=== PATIENT | female | born 1990 | race Caucasian/White ===

== ENCOUNTER 2019-07-02 18:32 | Emergency (ER) | payer MEDICAID ==
[~2019-07-02] VITALS: Ht 177.8 cm; Wt 156.0 kg
[~2019-07-02 18:32] MED LIST: NORG1TAB PO
[2019-07-02] MEDS ORDERED: ibuprofen tablet 400 MG TABLET PO STA (19:03)
[2019-07-02] MEDS ORDERED: LISI-600 PO (19:06)
[2019-07-02] MEDS ORDERED: HYDR12.55 PO (19:06)
--- NOTE | 2019-07-02 19:18 | NUR ---
THE PATIENT HAD ONLY TAKEN 500 MG OF TYLENOL EXAM PROCTOR SO I ORDERED AND ADMINSTERED MOTRIN AND DID PATIENT EDUCATION.
[2019-07-02 20:30] VITALS: BP 146/80
[2019-07-02] MEDS ORDERED: oseltamivir phos 75mg capsule PO ONE (20:45)
[2019-07-02] MEDS ORDERED: TAM75C PO (20:48)
--- NOTE | 2019-07-02 21:42 | NUR ---
PT NOTIFIED OF POSITIVE FLU AND TO FILL HER RX FOR TAMIFLU
== END 2019-07-02 21:00 | disposition home or self-care (01) ==
LOC: ER 18:33
DX: J10.1 Influenza due to other identified influenza virus with other respiratory manifestations (principal); Z56.0 Unemployment, unspecified; Z79.899 Other long term (current) drug therapy
CPT/HCPCS: 87502; 87503; 99283

== ENCOUNTER 2019-11-25 11:50 | Emergency (ER) | payer BC, MEDICAID ==
[~2019-11-25] VITALS: Ht 177.8 cm; Wt 166.4 kg
[~2019-11-25 11:50] MED LIST changes: +HYDR12.55 PO; +LISI-600 PO; -NORG1TAB PO
[2019-11-25] MEDS ORDERED: metoprolol tartrate 1mg/ml inj IV ONE (12:25)
[2019-11-25 12:52] LABS: BASOPHILS % (AUTO) 0.5 % (0-1); EOSINOPHILS # (AUTO) 0.1 X10'3 (0-0.9); EOSINOPHILS % (AUTO) 1.1 % (0-6); HEMATOCRIT 36.4 % (35.0-45.0); HEMOGLOBIN 11.7 g/dl (12.0-16.0); LYMPHOCYTES # (AUTO) 2.3 X10'3 (1.1-4.8); LYMPHOCYTES % (AUTO) 28.8 % (21-51); MEAN CORPUSCULAR HEMOGLOBIN 25.1 PG (27.0-31.0); MEAN CORPUSCULAR HGB CONC 32.1 g/dL (33.0-36.5); MEAN CORPUSCULAR VOLUME 78.3 FL (78-98); MEAN PLATELET VOLUME 6.4 FL (7.4-10.4); MONOCYTES # (AUTO) 0.3 X10'3 (0-0.9); MONOCYTES % (AUTO) 4.3 % (2-12); NEUTROPHILS # (AUTO) 5.2 X10'3 (1.8-7.7); NEUTROPHILS % (AUTO) 65.3 % (42-75); PLATELET COUNT 312 X10'3 (140-440); RED BLOOD COUNT 4.65 X10'6 (4.20-5.60); RED CELL DISTRIBUTION WIDTH 15.5 % (11.5-14.5); WHITE BLOOD COUNT 7.9 X10'3 (4.5-11.0)
[2019-11-25 13:11] LABS: ALANINE AMINOTRANSFERASE 36 U/L (12-78); ALBUMIN 3.7 G/DL (3.4-5.0); ALBUMIN/GLOBULIN RATIO 0.8 (1.1-1.5); ALKALINE PHOSPHATASE 124 IU/L (46-116); ANION GAP 6 (8-16); ASPARTATE AMINO TRANSFERASE 18 U/L (10-37); BILIRUBIN,TOTAL 0.6 MG/DL (0.1-1.0); BLOOD UREA NITROGEN 12 MG/DL (7-18); BUN/CREATININE RATIO 16.2 (6.6-38.0); CALCIUM 8.9 MG/DL (8.5-10.1); CHLORIDE 106 MMOL/L (99-107); CREATININE 0.74 MG/DL (0.40-0.90); GLUCOSE 102 MG/DL (70-104); POTASSIUM 3.7 MMOL/L (3.5-5.1); SODIUM 141 MMOL/L (135-145); TOTAL CARBON DIOXIDE 29.5 MMOL/L (24-32); TOTAL PROTEIN 8.3 G/DL (6.4-8.2); eGFR > 90 ML/MIN
[2019-11-25] MEDS ORDERED: cloNIDine 0.1 mg tablet PO ONE (13:55)
[2019-11-25 13:57] VITALS: BP 171/105
[2019-11-25] MEDS ORDERED: HYDR12.55 PO (14:10)
[2019-11-25] MEDS ORDERED: LISI-600 PO (14:10)
== END 2019-11-25 14:27 | disposition home or self-care (01) ==
LOC: ER 11:50
DX: I10 Essential (primary) hypertension (principal); Z56.0 Unemployment, unspecified; Z79.899 Other long term (current) drug therapy
CPT/HCPCS: 36415; 71045; 80053; 83880; 84484; 85025; 93005; 96374; 99285; J3490

== ENCOUNTER 2020-05-18 21:06 | Emergency (ER) | payer MEDICAID ==
[~2020-05-18] VITALS: Ht 175.3 cm; Wt 165.0 kg
[2020-05-18 21:15] VITALS: BP 191/104
[2020-05-18] MEDS ORDERED: ibuprofen tablet 400 MG TABLET PO ONE (21:25)
[2020-05-18] MEDS ORDERED: PRED20TA PO (22:56)
[2020-05-18] MEDS ORDERED: ALBU6.7H9 INH (22:56)
[2020-05-18] MEDS ORDERED: AZIT250T2 PO (22:56)
--- NOTE | 2020-05-18 23:13 | NUR ---
pt left called her phone and left message for her to come and pickling grader her prescriptions
== END 2020-05-18 23:15 | disposition left against medical advice (07) ==
LOC: ER 21:07
DX: J40 Bronchitis, not specified as acute or chronic (principal); R50.9 Fever, unspecified; R07.89 Other chest pain; R06.02 Shortness of breath; R09.89 Other specified symptoms and signs involving the circulatory and respiratory systems; Z20.828 Contact with and (suspected) exposure to other viral communicable diseases; I10 Essential (primary) hypertension; Z56.0 Unemployment, unspecified; Z79.2 Long term (current) use of antibiotics; Z79.899 Other long term (current) drug therapy
CPT/HCPCS: 36415; 71045; 87502; 87503; 93005; 99285

== ENCOUNTER → 2020-06-17 | Emergency (ER) | payer MEDICAID ==
[~2020-06-17] VITALS: Ht 175.3 cm; Wt 163.6 kg
[~2020-06-17] MED LIST changes: +ALBU6.7H9 INH; +HYDROchlorothiazide 25mg tablet PO ONE; +LISI1TAB51 PO; +aspirin 81mg tab.chew PO ONE; +lisinopril 10 MG tablet PO ONE
[2020-06-17 16:02] LABS: BASOPHILS % (AUTO) 0.4 % (0-1); EOSINOPHILS # (AUTO) 0.1 X10'3 (0-0.9); LYMPHOCYTES % (AUTO) 35.2 % (21-51); MEAN PLATELET VOLUME 6.7 FL (7.4-10.4); MONOCYTES # (AUTO) 0.3 X10'3 (0-0.9)
[2020-06-17 16:04] LABS: EOSINOPHILS % (AUTO) 1.5 % (0-6); HEMATOCRIT 35.8 % (35.0-45.0); HEMOGLOBIN 11.5 g/dl (12.0-16.0); LYMPHOCYTES # (AUTO) 2.1 X10'3 (1.1-4.8); MEAN CORPUSCULAR HEMOGLOBIN 25.7 PG (27.0-31.0); MEAN CORPUSCULAR HGB CONC 32.1 g/dL (33.0-36.5); MONOCYTES % (AUTO) 5.5 % (2-12); NEUTROPHILS # (AUTO) 3.4 X10'3 (1.8-7.7); NEUTROPHILS % (AUTO) 57.4 % (42-75); PLATELET COUNT 352 X10'3 (140-440); RED BLOOD COUNT 4.47 X10'6 (4.20-5.60); RED CELL DISTRIBUTION WIDTH 15.8 % (11.5-14.5); WHITE BLOOD COUNT 5.9 X10'3 (4.5-11.0)
[2020-06-17 16:12] LABS: ALANINE AMINOTRANSFERASE 39 U/L (12-78); ALBUMIN 3.7 G/DL (3.4-5.0); ALBUMIN/GLOBULIN RATIO 0.8 (1.1-1.5); ALKALINE PHOSPHATASE 108 IU/L (46-116); ANION GAP 5 (8-16); ASPARTATE AMINO TRANSFERASE 18 U/L (10-37); BILIRUBIN,TOTAL 0.9 MG/DL (0.1-1.0); BLOOD UREA NITROGEN 8 MG/DL (7-18); BUN/CREATININE RATIO 10.4 (6.6-38.0); CALCIUM 8.8 MG/DL (8.5-10.1); CHLORIDE 106 MMOL/L (99-107); CREATININE 0.77 MG/DL (0.40-0.90); GLUCOSE 100 MG/DL (70-104); POTASSIUM 3.5 MMOL/L (3.5-5.1); SODIUM 141 MMOL/L (135-145); TOTAL CARBON DIOXIDE 30.4 MMOL/L (24-32); TOTAL PROTEIN 8.3 G/DL (6.4-8.2); eGFR 89 ML/MIN
[2020-06-17 16:19] LABS: MAGNESIUM 2.2 MG/DL (1.5-2.4)
[2020-06-17 16:33] VITALS: BP_DIAS 122
[2020-06-17 16:40] VITALS: BP_SYST 177
== END | disposition home or self-care (01) ==
LOC: ER 19:57
DX: I10 Essential (primary) hypertension (principal); R42 Dizziness and giddiness; R07.89 Other chest pain; Z56.0 Unemployment, unspecified; Z79.899 Other long term (current) drug therapy
CPT/HCPCS: 36415; 71045; 80053; 83735; 83880; 84484; 85025; 99285

== ENCOUNTER 2020-10-29 12:20 | Emergency (ER) | payer MEDICAID ==
[~2020-10-29] VITALS: Ht 175.3 cm; Wt 145.7 kg
[~2020-10-29 12:20] MED LIST changes: -HYDROchlorothiazide 25mg tablet PO ONE; -LISI-600 PO; +LISI20TA28 PO; -aspirin 81mg tab.chew PO ONE; -lisinopril 10 MG tablet PO ONE
[2020-10-29 12:26] VITALS: BP 195/123
[2020-10-29] MEDS ORDERED: ketorolac tromethamine 15mg/ml inj. IM ONE (13:05)
[2020-10-29] MEDS ORDERED: CYCL-1 PO (13:11)
[2020-10-29] MEDS ORDERED: IBUP-1984 PO (13:11)
== END 2020-10-29 13:36 | disposition home or self-care (01) ==
LOC: ER 12:20
DX: S16.1XXA Strain of muscle, fascia and tendon at neck level, initial encounter (principal); M25.512 Pain in left shoulder; M54.2 Cervicalgia; I10 Essential (primary) hypertension; Z56.0 Unemployment, unspecified; Z79.899 Other long term (current) drug therapy; X58.XXXA Exposure to other specified factors, initial encounter; Y93.89 Activity, other specified; Y92.89 Other specified places as the place of occurrence of the external cause; Y99.8 Other external cause status
CPT/HCPCS: 96372; 99283; J1885

== ENCOUNTER 2021-01-13 10:22 | Emergency (ER) | payer MEDICAID ==
[~2021-01-13] VITALS: Ht 177.8 cm; Wt 159.1 kg
[~2021-01-13 10:22] MED LIST changes: +CYCL-1 PO
[2021-01-13 11:07] VITALS: BP 193/126
--- NOTE | 2021-01-13 13:34 | NUR ---
Patient states requesting to leave. Anita TURCIOS attempted to bring patient back to a room at which patient states abscess started to drain in bathroom and did not was to wait to be treated per PA. Patient left with ride home.
== END 2021-01-13 13:36 | disposition left against medical advice (07) ==
LOC: ER 10:23
DX: L02.412 Cutaneous abscess of left axilla (principal); I10 Essential (primary) hypertension; Z56.0 Unemployment, unspecified; Z79.899 Other long term (current) drug therapy
CPT/HCPCS: 99281

== ENCOUNTER 2021-05-18 11:59 | Emergency (ER) | payer MEDICAID ==
[~2021-05-18] VITALS: Ht 176.5 cm; Wt 162.7 kg
[2021-05-18] MEDS ORDERED: cephalexin 250mg capsule PO ONE (13:35)
[2021-05-18] MEDS ORDERED: LIDOcaine 1% W/epiNEPHrine 1:200,000 10ml vial IJ ONE (13:35)
[2021-05-18] MEDS ORDERED: DOXYCYCLINE 100MG CAPSULE PO STA (13:35)
[2021-05-18] MEDS ORDERED: LIDOcaine 1% W/epiNEPHrine 1:100,000 20ml vial IJ ONE (13:40)
[2021-05-18] MEDS ORDERED: CEPH250T PO (14:24)
[2021-05-18] MEDS ORDERED: DOXY100C43 PO (14:24)
[2021-05-18 14:38] VITALS: BP 190/100
== END 2021-05-18 14:40 | disposition home or self-care (01) ==
LOC: ER 11:59
DX: H00.031 Abscess of right upper eyelid (principal); H57.11 Ocular pain, right eye; Z56.0 Unemployment, unspecified; Z79.2 Long term (current) use of antibiotics; Z79.899 Other long term (current) drug therapy
CPT/HCPCS: 67700; 99283; 99284

== ENCOUNTER 2021-07-10 09:27 | Emergency (ER) | payer MEDICAID ==
[~2021-07-10] VITALS: Ht 175.3 cm; Wt 175.0 kg
[~2021-07-10 09:27] MED LIST changes: +CEPH250T PO
[2021-07-10 09:40] VITALS: BP 196/126
== END 2021-07-10 14:19 | disposition home or self-care (01) ==
LOC: ER 09:28
DX: J35.1 Hypertrophy of tonsils (principal); R06.02 Shortness of breath; I10 Essential (primary) hypertension
CPT/HCPCS: 99281

== ENCOUNTER 2021-11-13 13:38 | Emergency (ER) | payer MEDICAID ==
[~2021-11-13] VITALS: Ht 175.3 cm; Wt 170.4 kg
[2021-11-13 13:47] VITALS: BP 135/84
[2021-11-13] MEDS ORDERED: ketorolac tromethamine 15mg/ml inj. IM ONE (15:25)
[2021-11-13] MEDS ORDERED: IBUP-1984 PO (16:11)
== END 2021-11-13 16:53 | disposition home or self-care (01) ==
LOC: ER 13:39
DX: S93.401A Sprain of unspecified ligament of right ankle, initial encounter (principal); I10 Essential (primary) hypertension; Z56.0 Unemployment, unspecified; Z79.899 Other long term (current) drug therapy; W19.XXXA Unspecified fall, initial encounter; Y93.89 Activity, other specified; Y92.89 Other specified places as the place of occurrence of the external cause; Y99.8 Other external cause status
CPT/HCPCS: 73610; 96372; 99283; J1885; A6449

== ENCOUNTER 2023-01-12 21:09 | Emergency (ER) | payer MEDICAID ==
[~2023-01-12] VITALS: Ht 175.3 cm; Wt 188.6 kg
[~2023-01-12 21:09] MED LIST changes: +ALBU6.7H14 INH; -ALBU6.7H9 INH; -CEPH250T PO
[2023-01-12 21:43] LABS: BASOPHILS % (AUTO) 0.5 % (0-1); EOSINOPHILS # (AUTO) 0.2 X10'3 (0-0.9); EOSINOPHILS % (AUTO) 2.2 % (0-6); HEMATOCRIT 30.8 % (35.0-45.0); HEMOGLOBIN 9.6 g/dl (12.0-16.0); MEAN CORPUSCULAR HEMOGLOBIN 22.4 PG (27.0-31.0); MEAN CORPUSCULAR HGB CONC 31.3 g/dL (33.0-36.5); MEAN CORPUSCULAR VOLUME 71.5 FL (78-98); MEAN PLATELET VOLUME 6.6 FL (7.4-10.4); MONOCYTES # (AUTO) 0.4 X10'3 (0-0.9); MONOCYTES % (AUTO) 4.2 % (2-12); NEUTROPHILS # (AUTO) 6.4 X10'3 (1.8-7.7); NEUTROPHILS % (AUTO) 71.1 % (42-75); PLATELET COUNT 328 X10'3 (140-440); RED BLOOD COUNT 4.31 X10'6 (4.20-5.60); RED CELL DISTRIBUTION WIDTH 16.8 % (11.5-14.5); WHITE BLOOD COUNT 8.9 X10'3 (4.5-11.0)
[2023-01-12 22:07] VITALS: BP 150/101; PULSE 113; RESP 20; TEMP 97.6; O2SAT 97
[2023-01-12 22:07] LABS: ALANINE AMINOTRANSFERASE 52 U/L (12-78); ALBUMIN 3.3 G/DL (3.4-5.0); ALBUMIN/GLOBULIN RATIO 0.7 (1.1-1.5); ALKALINE PHOSPHATASE 136 IU/L (46-116); ANION GAP 7 (8-16); ASPARTATE AMINO TRANSFERASE 27 U/L (10-37); BILIRUBIN,TOTAL 0.7 MG/DL (0.1-1.0); BLOOD UREA NITROGEN 12 MG/DL (7-18); BUN/CREATININE RATIO 15.6 (10.0-20.0); CALCIUM 9.4 MG/DL (8.5-10.1); CHLORIDE 102 MMOL/L (99-107); CREATININE 0.77 MG/DL (0.40-0.90); GLUCOSE 207 MG/DL (70-104); POTASSIUM 3.6 MMOL/L (3.5-5.1); PRO BRAIN NATRIURETIC PEPTIDE 68 PG/ML (0-125); SODIUM 140 MMOL/L (135-145); TOTAL CARBON DIOXIDE 31.2 MMOL/L (24-32); TOTAL PROTEIN 7.9 G/DL (6.4-8.2); eGFR 87 ML/MIN
== END 2023-01-13 02:42 | disposition left against medical advice (07) ==
LOC: ER 21:09
DX: R06.02 Shortness of breath (principal); Z53.21 Procedure and treatment not carried out due to patient leaving prior to being seen by health care provider
CPT/HCPCS: 36415; 71045; 80053; 83880; 84484; 85025; 93005; 99281

== ENCOUNTER 2023-06-30 05:28 | Inpatient (IN) | payer MEDICAID, OTHER ==
[~2023-06-30] VITALS: Ht 175.3 cm; Wt 217.0 kg
[2023-06-30 06:41] LABS: ALBUMIN 3.2 G/DL (3.4-5.0); ANION GAP 10 (8-16); BLOOD UREA NITROGEN 11 MG/DL (7-18); BUN/CREATININE RATIO 15.5 (10.0-20.0); CALCIUM 8.1 MG/DL (8.5-10.1); CHLORIDE 107 MMOL/L (99-107); CREATININE 0.71 MG/DL (0.40-0.90); GLUCOSE 161 MG/DL (70-104); POTASSIUM 3.7 MMOL/L (3.5-5.1); PRO BRAIN NATRIURETIC PEPTIDE 414 PG/ML (0-125); SODIUM 148 MMOL/L (135-145); TOTAL CARBON DIOXIDE 30.9 MMOL/L (24-32); eCRCL 120 ML/MIN; eGFR > 90 ML/MIN
[2023-06-30 06:47] LABS: BASOPHILS % (AUTO) 0.4 % (0-1); EOSINOPHILS # (AUTO) 0.1 X10'3 (0-0.9); EOSINOPHILS % (AUTO) 2.1 % (0-6); LYMPHOCYTES # (AUTO) 1.3 X10'3 (1.1-4.8); LYMPHOCYTES % (AUTO) 18.3 % (21-51); MEAN PLATELET VOLUME 6.5 FL (7.4-10.4); MONOCYTES # (AUTO) 0.3 X10'3 (0-0.9); MONOCYTES % (AUTO) 4.8 % (2-12); NEUTROPHILS # (AUTO) 5.4 X10'3 (1.8-7.7); NEUTROPHILS % (AUTO) 74.4 % (42-75); PLATELET COUNT 332 X10'3 (140-440); WHITE BLOOD COUNT 7.2 X10'3 (4.5-11.0)
[2023-06-30 07:18] LABS: HEMATOCRIT 27.7 % (35.0-45.0); HEMOGLOBIN 8.5 g/dl (12.0-16.0); MEAN CORPUSCULAR HEMOGLOBIN 21.9 PG (27.0-31.0); MEAN CORPUSCULAR VOLUME 71.3 FL (78-98); RED BLOOD COUNT 3.89 X10'6 (4.20-5.60)
[2023-06-30 07:19] LABS: MEAN CORPUSCULAR HGB CONC 30.8 g/dL (33.0-36.5); RED CELL DISTRIBUTION WIDTH 17.6 % (11.5-14.5)
[2023-06-30] MEDS: metoprolol tartrate 50mg tablet PO ONE (07:21)
[2023-06-30] MEDS: piperacillin/tazo 3.375gm/50ml 50 ML IV ONE (07:37)
[2023-06-30] MEDS: enalaprilat dihydrate 2.5mg/2ml vial IV ONE (07:37)
[2023-06-30] MEDS: vancomycin/NS 1 GM ADD-VANTAGE 250 ML IV ONE (07:54)
[2023-06-30 08:03] LABS: PLATELET ESTIMATE NORMAL
[2023-06-30 08:04] LABS: ANISOCYTOSIS 2+; HYPOCHROMASIA 2+; MICROCYTOSIS 2+; POLYCHROMASIA 1+
[2023-06-30] MEDS ORDERED: potassium Cl 40MEQ/1/2NS 520ml 520 ML IV PRN (08:45)
[2023-06-30] MEDS ORDERED: potassium Cl 20 mEq SR tablet PO PRN ×2 (08:45)
[2023-06-30] MEDS ORDERED: morphine 2 MG/ML inj. syringe IV PRN (08:45)
[2023-06-30] MEDS ORDERED: magnesium 4gm in 100ml NS 100 ML IV PRN (08:45)
[2023-06-30] MEDS ORDERED: ondansetron/PF 4mg/2ml inj IV PRN (08:45)
[2023-06-30] MEDS ORDERED: magnesium 2GM in 50ml NS 50 ML IV PRN (08:45)
[2023-06-30] MEDS ORDERED: magnesium Cl slow-release 64mg tablet PO PRN (08:45)
[2023-06-30] MEDS ORDERED: HYDROcodone/acetaminophen 5mg/325mg tablet PO PRN (08:45)
[2023-06-30] MEDS ORDERED: acetaminophen 325mg tablet PO PRN (08:45)
[2023-06-30] MEDS ORDERED: HYDROchlorothiazide 12.5mg capsule PO SCH (08:50)
[2023-06-30] MEDS ORDERED: albuterol 2.5 MG/3 ML nebule NEB PRN (09:40)
[2023-06-30] MEDS: furosemide 20 MG/2 ML vial IV SCH (10:24)
[2023-06-30 10:25] LABS: % IRON SATURATION 4 % (11-46); IRON 19 UG/DL (49-151); TOTAL IRON BINDING CAPACITY 460 UG/DL (259-388)
[2023-06-30 13:57] LABS: URINE AMPHETAMINE SCREEN NEGATIVE (Neg); URINE BARBITUATE SCREEN NEGATIVE (Neg); URINE BENZODIAZEPINES SCREEN NEGATIVE (Neg); URINE CANNABINOID SCREEN NEGATIVE (Neg); URINE COCAINE SCREEN NEGATIVE (Neg); URINE METHADONE SCREEN NEGATIVE (Neg); URINE OPIATE SCREEN NEGATIVE (Neg); URINE PHENCYCLIDINE SCREEN NEGATIVE (Neg)
[2023-06-30] MEDS: vancomycin/NS 1 GM ADD-VANTAGE 250 ML IV SCH (16:19)
[2023-06-30 19:39] VITALS: PULSE 95; RESP 18; O2SAT 95
[2023-06-30] MEDS: enoxaparin 30mg/0.3ml syringe SQ SCH (20:00)
[2023-06-30] MEDS: labetalol 100mg tablet PO SCH (20:00)
[2023-06-30] MEDS ORDERED: temazepam 15mg capsule PO PRN (21:00)
[2023-06-30] MEDS: doxycycline inj 100 MG in normal saline 100ml IV soln 100 ML IV SCH (21:23)
[2023-07-01] VITALS (9 sets, daily range): BP systolic 139–165; BP diastolic 80–99; PULSE 69–109; RESP 16–27; TEMP 97.3–98.7; O2SAT 92–97
[2023-07-01 03:15] LABS: ALANINE AMINOTRANSFERASE 53 U/L (12-78); ALBUMIN 3.1 G/DL (3.4-5.0); ALBUMIN/GLOBULIN RATIO 0.8 (1.1-1.5); ALKALINE PHOSPHATASE 90 IU/L (46-116); ANION GAP 10 (8-16); ASPARTATE AMINO TRANSFERASE 26 U/L (10-37); BILIRUBIN,TOTAL 1.2 MG/DL (0.1-1.0); BLOOD UREA NITROGEN 12 MG/DL (7-18); BUN/CREATININE RATIO 16.9 (10.0-20.0); CALCIUM 8.7 MG/DL (8.5-10.1); CHLORIDE 105 MMOL/L (99-107); CREATININE 0.71 MG/DL (0.40-0.90); GLUCOSE 165 MG/DL (70-104); POTASSIUM 3.6 MMOL/L (3.5-5.1); SODIUM 146 MMOL/L (135-145); TOTAL CARBON DIOXIDE 30.6 MMOL/L (24-32); TOTAL PROTEIN 7.2 G/DL (6.4-8.2); eCRCL 120 ML/MIN; eGFR > 90 ML/MIN
[2023-07-01 04:21] LABS: BASOPHILS % (AUTO) 0.3 % (0-1); EOSINOPHILS # (AUTO) 0.1 X10'3 (0-0.9); EOSINOPHILS % (AUTO) 1.9 % (0-6); HEMATOCRIT 26.6 % (35.0-45.0); HEMOGLOBIN 7.9 g/dl (12.0-16.0); LYMPHOCYTES # (AUTO) 1.2 X10'3 (1.1-4.8); LYMPHOCYTES % (AUTO) 16.3 % (21-51); MEAN CORPUSCULAR HEMOGLOBIN 20.6 PG (27.0-31.0); MEAN CORPUSCULAR HGB CONC 29.8 g/dL (33.0-36.5); MEAN CORPUSCULAR VOLUME 69.3 FL (78-98); MEAN PLATELET VOLUME 6.7 FL (7.4-10.4); MONOCYTES # (AUTO) 0.3 X10'3 (0-0.9); MONOCYTES % (AUTO) 4.5 % (2-12); NEUTROPHILS # (AUTO) 5.8 X10'3 (1.8-7.7); PLATELET COUNT 349 X10'3 (140-440); RED BLOOD COUNT 3.84 X10'6 (4.20-5.60); RED CELL DISTRIBUTION WIDTH 18.6 % (11.5-14.5); WHITE BLOOD COUNT 7.5 X10'3 (4.5-11.0)
[2023-07-01] MEDS: VANCOMYCIN LEVEL IV ONE (07:30)
[2023-07-01] MEDS: VANCOmycin 1250MG/NS 250ml Bag 250 ML IV SCH (08:00)
[2023-07-01] MEDS: lisinopril 20mg tablet PO SCH (09:38)
[2023-07-01] MEDS ORDERED: NORMAL SALINE IV ONE (16:05)
[2023-07-01] MEDS ORDERED: IRON DEXTRAN COMPLEX IV ONE (16:05)
[2023-07-01] MEDS ORDERED: iron dextran complex inj. 25 MG in normal saline 50ml IV soln 49.5 ML IV ONE (17:00)
[2023-07-01] MEDS: iron dextran complex inj. 25 MG in normal saline 100ml IV soln 100 ML IV ONE (17:14)
[2023-07-01] MEDS: albuterol 2.5 MG/3 ML nebule NEB SCH (20:05)
[2023-07-01] MEDS: IRON DEXTRAN COMPLEX IV ONE (20:12)
[2023-07-01] MEDS: NORMAL SALINE IV ONE (20:12)
[2023-07-01] MEDS: pantoprazole 40mg Tablet.DR PO SCH (20:24)
[2023-07-02] VITALS (8 sets, daily range): BP systolic 134–148; BP diastolic 75–84; PULSE 82–89; RESP 16–22; TEMP 98.1–98.9; O2SAT 93–98
[2023-07-02 08:00] LABS: BASOPHILS % (AUTO) 0.4 % (0-1); EOSINOPHILS # (AUTO) 0.1 X10'3 (0-0.9); EOSINOPHILS % (AUTO) 1.4 % (0-6); HEMATOCRIT 27.2 % (35.0-45.0); HEMOGLOBIN 7.8 g/dl (12.0-16.0); LYMPHOCYTES # (AUTO) 1.3 X10'3 (1.1-4.8); LYMPHOCYTES % (AUTO) 17.1 % (21-51); MEAN CORPUSCULAR HEMOGLOBIN 20.3 PG (27.0-31.0); MEAN CORPUSCULAR HGB CONC 28.7 g/dL (33.0-36.5); MEAN CORPUSCULAR VOLUME 70.6 FL (78-98); MEAN PLATELET VOLUME 6.5 FL (7.4-10.4); MONOCYTES # (AUTO) 0.4 X10'3 (0-0.9); MONOCYTES % (AUTO) 5.2 % (2-12); NEUTROPHILS # (AUTO) 5.7 X10'3 (1.8-7.7); NEUTROPHILS % (AUTO) 75.9 % (42-75); PLATELET COUNT 347 X10'3 (140-440); RED BLOOD COUNT 3.86 X10'6 (4.20-5.60); RED CELL DISTRIBUTION WIDTH 18.4 % (11.5-14.5); WHITE BLOOD COUNT 7.5 X10'3 (4.5-11.0)
[2023-07-02 08:14] LABS: ALANINE AMINOTRANSFERASE 41 U/L (12-78); ALBUMIN 3.2 G/DL (3.4-5.0); ALBUMIN/GLOBULIN RATIO 0.7 (1.1-1.5); ALKALINE PHOSPHATASE 89 IU/L (46-116); ANION GAP 5 (8-16); ASPARTATE AMINO TRANSFERASE 14 U/L (10-37); BILIRUBIN,TOTAL 1.2 MG/DL (0.1-1.0); BLOOD UREA NITROGEN 10 MG/DL (7-18); BUN/CREATININE RATIO 15.9 (10.0-20.0); CALCIUM 8.9 MG/DL (8.5-10.1); CHLORIDE 106 MMOL/L (99-107); CREATININE 0.63 MG/DL (0.40-0.90); GLUCOSE 152 MG/DL (70-104); POTASSIUM 4.1 MMOL/L (3.5-5.1); SODIUM 144 MMOL/L (135-145); TOTAL CARBON DIOXIDE 33.2 MMOL/L (24-32); TOTAL PROTEIN 7.6 G/DL (6.4-8.2); VANCOMYCIN,TROUGH 17.1 ug/mL (10.0-20.0); eCRCL 135 ML/MIN; eGFR > 90 ML/MIN
[2023-07-02] MEDS: VANCOMYCIN LEVEL IV ONE (08:19)
[2023-07-02] MEDS ORDERED: FURO20TA4 PO (10:27)
[2023-07-02] MEDS ORDERED: FERR324T4 PO (10:27)
[2023-07-02] MEDS ORDERED: PANT40TA54 PO (10:27)
[2023-07-02 10:29] LABS: OCCULT BLOOD STOOL NEGATIVE (Neg)
[2023-07-02] MEDS ORDERED: GUAI237L83 PO (10:30)
== END 2023-07-02 13:05 | disposition home or self-care (01) | DRG 603 ==
LOC: ER 05:29 → ED HOLD 08:46 → PCU 3S 07-01 03:43
PROVIDERS: ADMIT Internal Medicine; ATTEND Internal Medicine
DX: L03.311 Cellulitis of abdominal wall (principal); I50.32 Chronic diastolic (congestive) heart failure; Z68.45 Body mass index [BMI] 70 or greater, adult; I16.0 Hypertensive urgency; I11.0 Hypertensive heart disease with heart failure; J98.01 Acute bronchospasm; Z20.822 Contact with and (suspected) exposure to COVID-19; G47.33 Obstructive sleep apnea (adult) (pediatric); D64.9 Anemia, unspecified; E66.01 Morbid (severe) obesity due to excess calories; Z79.899 Other long term (current) drug therapy
CPT/HCPCS: 36415; 71045; 80048; 80053; 80202; 80305; 82272; 83540; 83550; 83605; 83880; 84484; 85008; 85025; 87040; 87081; 87811; 93005; 93308; 94640; 94760; 97161; 97530; 99285; A4615; G0378; J1650; J1750; J1940; J2543; J3370; J3490; J7030; J7040

== ENCOUNTER 2024-04-15 16:36 | Emergency (ER) | payer OTHER ==
[~2024-04-15] VITALS: Ht 175.3 cm; Wt 198.0 kg
[~2024-04-15 16:36] MED LIST changes: +FERR324T4 PO; +FURO20TA4 PO; +GUAI237L83 PO; -HYDR12.55 PO; -LISI1TAB51 PO; +PANT40TA54 PO
[2024-04-15 17:13] LABS: BASOPHILS % (AUTO) 0.5 % (0-1); EOSINOPHILS # (AUTO) 0.1 X10'3 (0-0.9); EOSINOPHILS % (AUTO) 1.5 % (0-6); HEMOGLOBIN 11.5 g/dl (12.0-16.0); LYMPHOCYTES # (AUTO) 2.1 X10'3 (1.1-4.8); LYMPHOCYTES % (AUTO) 24.5 % (21-51); MEAN CORPUSCULAR HEMOGLOBIN 25.4 PG (27.0-31.0); MEAN CORPUSCULAR HGB CONC 31.8 g/dL (33.0-36.5); MEAN CORPUSCULAR VOLUME 79.7 FL (78-98); MEAN PLATELET VOLUME 6.7 FL (7.4-10.4); MONOCYTES # (AUTO) 0.3 X10'3 (0-0.9); MONOCYTES % (AUTO) 3.9 % (2-12); NEUTROPHILS # (AUTO) 6.1 X10'3 (1.8-7.7); NEUTROPHILS % (AUTO) 69.6 % (42-75); PLATELET COUNT 373 X10'3 (140-440); RED BLOOD COUNT 4.52 X10'6 (4.20-5.60); RED CELL DISTRIBUTION WIDTH 17.1 % (11.5-14.5); WHITE BLOOD COUNT 8.7 X10'3 (4.5-11.0)
[2024-04-15 17:27] LABS: ALANINE AMINOTRANSFERASE 55 U/L (12-78); ALBUMIN 3.5 G/DL (3.4-5.0); ALBUMIN/GLOBULIN RATIO 0.7 (1.1-1.5); ALKALINE PHOSPHATASE 143 IU/L (46-116); ANION GAP 8 (8-16); ASPARTATE AMINO TRANSFERASE 29 U/L (10-37); BLOOD UREA NITROGEN 12 MG/DL (7-18); BUN/CREATININE RATIO 15.2 (10.0-20.0); CALCIUM 9.6 MG/DL (8.5-10.1); CHLORIDE 101 MMOL/L (99-107); CREATININE 0.79 MG/DL (0.40-0.90); GLUCOSE 136 MG/DL (70-104); POTASSIUM 3.6 MMOL/L (3.5-5.1); SODIUM 140 MMOL/L (135-145); TOTAL CARBON DIOXIDE 30.8 MMOL/L (24-32); TOTAL PROTEIN 8.5 G/DL (6.4-8.2); eCRCL 107 ML/MIN; eGFR 84 ML/MIN
[2024-04-15 17:35] LABS: PRO BRAIN NATRIURETIC PEPTIDE < 30 PG/ML (0-125)
[2024-04-15 18:02] VITALS: BP 150/99; PULSE 91; RESP 16; TEMP 98.2; O2SAT 96
== END 2024-04-15 18:03 | disposition home or self-care (01) ==
LOC: ER 16:37
DX: R00.2 Palpitations (principal); R07.89 Other chest pain; I10 Essential (primary) hypertension; Z79.899 Other long term (current) drug therapy
CPT/HCPCS: 36415; 71045; 80053; 83880; 84484; 85025; 93005; 99285